=== PATIENT | male | born 1980 | race Caucasian/White ===

== ENCOUNTER 2018-01-03 08:59 | Emergency (ER) | payer OTHER ==
--- OUTSIDE RECORDS SUMMARY | 2018-01-03 09:13 | XMS REPORT ---
:1980 External Reference #:[id number] Author Organization [facility] Address [address] [place] [address] Phone [phone] Care Team Providers Name Role Phone Nan Ybarra M.D. Care Team Information Employment Clerk Unavailable Nan Ybarra M.D. Primary Care Physician Unavailable Payers Type Date Identification Numbers Payment Provider Subscriber Commercial Policy Number: [id number] Insurance Change Jed Jo Group Number: [id number] Group Name: [employer] Plan PayID: [id number] Problems Date Description Provider Status Onset: 06/17/2013 Benign essential hypertension Torito Solis M.D. Active Onset: 06/17/2013 Insomnia Torito Solis M.D. Active Onset: 04/01/2015 Essential hypertension Torito Solis M.D. Active Onset: 04/01/2015 Mixed hyperlipidemia Torito Solis M.D. Active Onset: 04/01/2015 Alcohol dependence Nan Ybarra M.D. Active Onset: 04/01/2015 Abnormal liver function Nan Ybarra M.D. Active Onset: 03/03/2016 Intermittent asthma Nan Ybarra M.D. Active Onset: 03/17/2016 Alcoholic fatty liver Nan Ybarra M.D. Active Onset: 04/01/2015 Anorectal abscess Torito Solis M.D. Resolved Resolved: 03/03/2016 Onset: 04/01/2015 Dysthymic disorder Torito Solis M.D. Resolved Resolved: 03/03/2016 Family History Date Family Member(s) Problem(s) Comments Father Asthma Mother Hypertension Mother Phlebitis Mother Diabetes Mellitus, II Mother DVT Mother Blood Coagulation Disorder Siblings 1 First Sister PCOS First Sister Hypertension Paternal Grandfather Heart Disease Paternal Grandfather Skin Cancer Maternal Grandfather due to Colon Cancer () - 70 yo Maternal Grandmother Heart Disease Social History Type Date Description Comments Marital Status Single lives with male partner of 7 years Lives With Male Partner Occupation Public health. Regional health planning ETOH Use 1/2 pt - 1 pt of vodka per night Smoking Patient is a former smoker quit 2013 Recreational Drug Use Denies Drug Use Daily Caffeine Does not consume caffeine Exercise Type/Frequency Exercises regularly Allergies, Adverse Reactions, Alerts Date Description Reaction Status Severity Comments 03/23/2013 NKDA active 10/20/2015 Pollen active Medications Medication Date Status Form Strength Qnty SIG Indications Ordering Provider Amlodipine 10/19/ Active Tablets 10mg 30tab 1 by mouth I10 Edwardo Nixon Besylate 2015 s every day MD Aneudy Ventolin HFA 10/19/ Active Aerosol 108(90Bas 1unit 2 puffs J45.20 Taya 2015) s every 4 CRISTOFER Jacobsen mcg/Act hours as needed for shortness of breath Atenolol 03/23/ Active Tablets 50mg 60tab take two I10 Edwardo Nixon 2012 s tablets by Aneudy arriola MD every day as directed Vitamin 00/ Active Tablets 1 by mouth Unknown B-Complex 0000 every day Fish Oil / Active Capsules 1000mg 1 by mouth Unknown 0000 every day Hepatapro / Active Cap 300mg 1 to 2 Unknown 0000 caps PO qd Anti-Alcohol / Active 3 po qd Unknown Antioxidants 0000 Vitamin D3 / Active Chewtabs 1000Unit 2 daily Unknown Adult Gummies 0000 Buspirone HCL 09/28/ Hx Tablets 15mg 60tab 1 tab by F06.4 Nan 2016 - s mouth [place], 12/31/ twice a M.D. 2017 day Buspirone HCL 03/03/ Hx Tablets 15mg 60tab 1 tab by F06.4 Nan 2015 - s mouth [place], 09/03/ twice a M.D. 2016 day Proair HFA 10/19/ Hx Aerosol 108(90Bas 1unit 2 puffs J45.20 Taya 2015 - ) s every 4 CRISTOFER Jacobsen 10/19/ mcg/Act hours as 2016 needed Clotrimazole/B 08/07/ Hx Cream 1-0.05% 90gm apply to B35.9 Josiane etamethasone 2016 - affected Gus, Dipropionate 08/07/ area, BLENDING COORDINATOR 2016 posterior knees, once a day Anucort-HC 03/20/ Hx Suppository 25mg [address] K64.2 Franchesca 2014 - ts of rectum Yadira, 03/26/ twice a Afnp-C 2014 day Hydrocodone-Ib 03/20/ Hx Tablets 5-200mg 20tab 1-2 tabs K64.2 Franchesca uprofen 2014 - s po q 6 hrs Yadira, 04/01/ prn for Afnp-C 2014 pain Citalopram 09/27/ Hx Tablets 10mg 30tab 1 by mouth 311 Torito Solis Hydrobromide 2014 - s every day M.D. 2014 Amoxicillin/Cl 12/29/ Hx Tablets 875-125mg 20tab 1 by mouth 461.9 Torito Solis avulanate 2013 - s twice a M.D. Potassium 09/27/ day for 1 2014 0days Amlodipine 12/29/ Hx Tablets 5mg 30tab Take One I10 Torito Solis Besylate 2013 - s Tablet By M.D. 10/19/ Mouth Once 2015 Daily Vistaril 07/20/ Hx Capsules 50mg 60cap 1-2 by 780.52 Torito Solis, 2013 - s mouth M.D. 12/29/ every 2013 night as needed Trazodone HCL 03/23/ Hx Tablets 100mg 60tab 2 by mouth 780.52 Torito Solis 2012 - s every M.D. 07/20/ night 2013 Lisinopril / Hx Tablets 10mg 30tab 1 po qd Unknown 0000 - s 2012 Proair HFA / Hx Aerosol 108(90Bas 1unit 2 puffs 493.90 Torito Solis, 0000 - e) s every 4 M.D. 09/27/ mcg/Act hours as 2014 needed Liver / Hx 1 po qd Unknown Efficiency 0000 - Formula 2017 Vital Signs Date Vital Result Comment 12/31/2017 BP Systolic 130 mmHg BP Diastolic 98 mmHg BP Systolic Recheck 72 mmHg Body Temperature 98.4 F Height 71 inches 5'11" measured 03/03/16 Weight 251.00 lb BMI (Body Mass Index) 35.0 kg/m2 06/29/2017 BP Systolic 120 mmHg BP Diastolic 80 mmHg Heart Rate 68 /min Body Temperature 98.0 F Respiratory Rate 18 /min Height 71 inches 5'11" measured 03/03/16 Weight 250.00 lb BMI (Body Mass Index) 34.9 kg/m2 09/03/2016 BP Systolic 132 mmHg BP Diastolic 88 mmHg Heart Rate 80 /min Body Temperature 97.1 F Height 71 inches 5'11" measured 03/03/16 Weight 242.00 lb BMI (Body Mass Index) 33.7 kg/m2 03/03/2016 BP Systolic 144 mmHg BP Diastolic 96 mmHg Heart Rate 78 /min Body Temperature 99.0 F Height 71 inches 5'11" measured 03/03/16 Weight 231.00 lb BMI (Body Mass Index) 32.2 kg/m2 Right Visual Acuity Distance 20/20 Left Visual Acuity Distance 20/20 12/11/2015 BP Systolic 132 mmHg BP Diastolic 88 mmHg Heart Rate 78 /min Body Temperature 98.4 F Respiratory Rate 16 /min Height 71.25 inches 5'11.25" Weight 234.00 lb BMI (Body Mass Index) 32.4 kg/m2 10/20/2015 BP Systolic 138 mmHg BP Diastolic 102 mmHg BP Systolic Recheck 150 mmHg BP Diastolic Recheck 100 mmHg Heart Rate 86 /min Body Temperature 98.4 F Respiratory Rate 15 /min Height 71.25 inches 5'11.25" Weight 234.50 lb BMI (Body Mass Index) 32.5 kg/m2 08/07/2015 BP Systolic 120 mmHg BP Diastolic 80 mmHg Heart Rate 76 /min Body Temperature 98.1 F Respiratory Rate 18 /min Height 71.25 inches 5'11.25" Weight 236.00 lb BMI (Body Mass Index) 32.7 kg/m2 04/01/2015 BP Systolic 124 mmHg BP Diastolic 80 mmHg Heart Rate 72 /min Body Temperature 97.9 F Respiratory Rate 16 /min Height 71.25 inches 5'11.25" Weight 231.25 lb BMI (Body Mass Index) 32.0 kg/m2 09/27/2014 BP Systolic 150 mmHg BP Diastolic 100 mmHg Heart Rate 100 /min Body Temperature 98.1 F Respiratory Rate 16 /min Height 71.25 inches 5'11.25" Weight 230.00 lb BMI (Body Mass Index) 31.9 kg/m2 12/29/2013 BP Systolic 128 mmHg BP Diastolic 98 mmHg Heart Rate 80 /min Body Temperature 98.0 F Respiratory Rate 16 /min Height 71.25 inches 5'11.25" Weight 213.00 lb BMI (Body Mass Index) 29.5 kg/m2 10/10/2013 BP Systolic 126 mmHg BP Diastolic 90 mmHg Heart Rate 60 /min Body Temperature 97.6 F Respiratory Rate 14 /min Height 71.25 inches 5'11.25" Weight 213.00 lb BMI (Body Mass Index) 29.5 kg/m2 07/20/2013 BP Systolic 110 mmHg BP Diastolic 80 mmHg Heart Rate 80 /min Body Temperature 96.9 F Respiratory Rate 16 /min Height 71.25 inches 5'11.25" Weight 211.00 lb BMI (Body Mass Index) 29.2 kg/m2 04/17/2013 BP Systolic 122 mmHg BP Diastolic 72 mmHg Heart Rate 78 /min Height 71.25 inches 5'11.25" Weight 206.00 lb BMI (Body Mass Index) 28.5 kg/m2 03/23/2013 BP Systolic 138 mmHg BP Diastolic 98 mmHg Heart Rate 84 /min Body Temperature 98.1 F Respiratory Rate 17 /min Height 71.25 inches 5'11.25" Weight 209.00 lb BMI (Body Mass Index) 28.9 kg/m2 Results Test Date Test Result H/L Range Note Comprehensive Metabolic Prof 09/03/2016 Sodium 139 mEq/L 134-149 Potassium 4.0 mEq/L 3.6-5.5 Chloride 102 mEq/L 94-112 Carbon Dioxide 23 mEq/L 21-32 Glucose 113 mg/dL High 70-105 1 BUN 12 mg/dL 6-26 Creatinine 0.8 mg/dL 0.6-1.4 BUN/Creat Ratio 15.0 CALC 8.0-36.0 Calcium 9.8 mg/dL 8.6-10.2 Total Protein 7.7 g/dL 6.4-8.3 Albumin 4.7 g/dL 3.8-5.5 Globulin 3.0 g/dL 2.0-4.8 A/G Ratio 1.6 CALC 0.6-2.3 Alk. Phosphatase 95 U/L 22-95 Alt (SGPT) 158 U/L High 7-35 Ast (Sgot) 122 U/L High 5-34 Total Bilirubin 0.7 mg/dL 0.2-1.3 GFR Non- >60 ml/min/1.73m^ >=60 GFR >60 ml/min/1.73m^ >=60 Lipid Profile 09/03/2016 Cholesterol 213 mg/dL High 120-200 Triglycerides 353 mg/dL High 30-200 HDL Cholesterol 45 mg/dL 30-70 LDL (Calculated) 97 CALC 0-129 VLDL Cholesterol 71 mg/dL High 0-50 HDL Risk Factor 4.7 CALC High 0.0-4.4 Laboratory test finding 09/03/2016 LDL, Direct 104 mg/dL 0-130 Hepatitis Panel, Acute 03/03/2016 Hep A Ab, IgM Negative Negative 2 HBsAg Screen Negative Negative 2 Hep B Core Ab, IgM Negative Negative 2 Hep C Virus Ab 0.4 s/coratio 0.0-0.9 2, 3 Prothrombin Time (PT) 03/03/2016 Inr 1.0 2, 4 Prothrombin Time 10.4 seconds 9.6-11.5 2 PTT, Activated 03/03/2016 aPTT 28.5 seconds 25.0-31.3 2 Laboratory test finding 03/03/2016 LDL, Direct 127 mg/dL 0-130 Laboratory test finding 03/03/2016 PDF [id number] SEE IMAGE 2 Comprehensive Metabolic Prof 03/03/2016 Sodium 141 mEq/L 134-149 Potassium 4.2 mEq/L 3.6-5.5 Chloride 102 mEq/L 94-112 Carbon Dioxide 24 mEq/L 21-32 Glucose 102 mg/dL 70-105 BUN 16 mg/dL 6-26 Creatinine 0.9 mg/dL 0.6-1.4 BUN/Creat Ratio 17.8 CALC 8.0-36.0 Calcium 10.2 mg/dL 8.6-10.2 Total Protein 8.0 g/dL 6.4-8.3 Albumin 5.1 g/dL 3.8-5.5 Globulin 2.9 g/dL 2.0-4.8 A/G Ratio 1.8 CALC 0.6-2.3 Alk. Phosphatase 80 U/L 22-95 Alt (SGPT) 150 U/L High 7-35 5 Ast (Sgot) 108 U/L High 5-34 6 Total Bilirubin 0.7 mg/dL 0.2-1.3 GFR Non- >60 ml/min/1.73m^ >=60 GFR >60 ml/min/1.73m^ >=60 Lipid Profile 03/03/2016 Cholesterol 203 mg/dL High 120-200 Triglycerides 272 mg/dL High 30-200 HDL Cholesterol 48 mg/dL 30-70 LDL (Calculated) 101 CALC 0-129 VLDL Cholesterol 54 mg/dL High 0-50 HDL Risk Factor 4.2 CALC 0.0-4.4 Complete Blood Count 03/03/2016 WBC 5.1 x10^3/UL 3.6-9.6 RBC 4.89 x10^6/UL 3.90-5.70 HGB 16.1 g/dL 12.1-17.2 HCT 47 % 36-50 MCV 96.0 fL 82.2-97.4 MCH 33.0 pg 27.6-33.3 MCHC 34.3 g/dL 33.0-35.5 RDW 14.1 % High 11.6-13.7 PLT 259 x10^3/UL 150-400 MPV 7.4 fL 7.4-10.4 Gran # 2.3 x10^3/UL 1.5-7.2 Lymph# 2.6 x10^3/UL 0.7-4.9 [place]# 0.2 x10^3/UL 0.1-0.9 Gran % 42.1 % Low 42.2-75.2 Lymph % 52.8 % High 20.5-51.1 [place]% 5.1 % 1.7-9.3 Comprehensive Metabolic Prof 10/20/2015 Sodium 134 mEq/L 134-149 Potassium 4.0 mEq/L 3.6-5.5 Chloride 94 mEq/L 94-112 Carbon Dioxide 24 mEq/L 21-32 Glucose 111 mg/dL High 70-105 BUN 16 mg/dL 6-26 Creatinine 0.9 mg/dL 0.6-1.4 BUN/Creat Ratio 17.8 CALC 8.0-36.0 Calcium 10.2 mg/dL 8.6-10.2 Total Protein 7.8 g/dL 6.4-8.3 Albumin 4.9 g/dL 3.8-5.5 Globulin 2.9 g/dL 2.0-4.8 A/G Ratio 1.7 CALC 0.6-2.3 Alk. Phosphatase 75 U/L 22-95 Alt (SGPT) 117 U/L High 7-35 Ast (Sgot) 57 U/L High 5-34 Total Bilirubin 0.7 mg/dL 0.2-1.3 GFR Non- >60 ml/min/1.73m^ >=60 GFR >60 ml/min/1.73m^ >=60 Lipid Profile 10/20/2015 Cholesterol 197 mg/dL 120-200 Triglycerides 254 mg/dL High 30-200 HDL Cholesterol 43 mg/dL 30-70 LDL (Calculated) 103 CALC 0-129 VLDL Cholesterol 51 mg/dL High 0-50 HDL Risk Factor 4.6 CALC High 0.0-4.4 Laboratory test finding 10/20/2015 LDL, Direct 98 mg/dL 0-130 Comprehensive Metabolic Prof 04/01/2015 Sodium 136 mEq/L 134-149 Potassium 4.2 mEq/L 3.6-5.5 Chloride 97 mEq/L 94-112 Carbon Dioxide 26 mEq/L 21-32 Glucose 102 mg/dL 70-105 BUN 18 mg/dL 6-26 Creatinine 1.0 mg/dL 0.6-1.4 BUN/Creat Ratio 18.0 CALC 8.0-36.0 Calcium 9.6 mg/dL 8.6-10.2 Total Protein 7.7 g/dL 6.4-8.3 Albumin 4.7 g/dL 3.8-5.5 Globulin 3.0 g/dL 2.0-4.8 A/G Ratio 1.6 CALC 0.6-2.3 Alk. Phosphatase 71 U/L 22-95 Alt (SGPT) 94 U/L High 7-35 7 Ast (Sgot) 79 U/L High 5-34 8 Total Bilirubin 0.7 mg/dL 0.2-1.3 GFR Non- >60 ml/min/1.73m^ >=60 GFR >60 ml/min/1.73m^ >=60 Lipid Profile 04/01/2015 Cholesterol 199 mg/dL 120-200 Triglycerides 462 mg/dL High 30-200 HDL Cholesterol 44 mg/dL 30-70 LDL (Calculated) 63 CALC 0-129 9 VLDL Cholesterol 92 mg/dL High 0-50 HDL Risk Factor 4.5 CALC High 0.0-4.4 Laboratory test finding 04/01/2015 LDL, Direct 92 mg/dL 0-130 Complete Blood Count 04/01/2015 WBC 5.9 x10^3/UL 3.6-9.6 RBC 4.62 x10^6/UL 3.90-5.70 HGB 15.8 g/dL 12.1-17.2 HCT 45 % 36-50 MCV 97.0 fL 82.2-97.4 MCH 34.3 pg High 27.6-33.3 MCHC 35.2 g/dL 33.0-35.5 RDW 13.5 % 11.6-13.7 PLT 242 x10^3/UL 150-400 MPV 6.7 fL Low 7.4-10.4 Gran # 2.9 x10^3/UL 1.5-7.2 Lymph# 2.8 x10^3/UL 0.7-4.9 [place]# 0.2 x10^3/UL 0.1-0.9 Gran % 46.8 % 42.2-75.2 Lymph % 48.3 % 20.5-51.1 [place]% 4.9 % 1.7-9.3 Laboratory test 04/01/2015 TSH 1.68 mIU/L 0.50-6.00 finding Laboratory test 03/21/2015 Wound SEE RESULT BELOW 10, 11 finding Culture/Sensi Anaerobic Culture SEE RESULT BELOW 10, 12 Comprehensive Metabolic Prof 06/19/2013 Albumin 5.1 g/dL 3.8-5.5 Alk. Phos. 69 U/L 22-95 Alt (SGPT) 106 U/L High 10-40 13 Ast (Sgot) 86 U/L High 5-34 14 BUN 19 mg/dL 6-26 Calcium 10.9 mg/dL High 8.6-10.2 15 Chloride 101 mEq/L 94-112 Creatinine 1.2 mg/dL 0.6-1.4 Carbon Dioxide 25 mEq/L 21-32 Glucose 110 mg/dL High 70-105 16 Sodium 138 mEq/L 134-149 Total Bilirubin 0.8 mg/dL 0.2-1.3 Total Protein 7.9 g/dL 6.3-8.1 Potassium 4.6 mEq/L 3.6-5.5 Globulin 2.8 g/dL 2.0-4.8 A/G Ratio 1.9 Calc 0.6-2.3 BUN/Creat Ratio 16.7 Calc 8.0-36.0 Lipid Profile 06/19/2013 Cholesterol 214 mg/dL High 120-200 HDL 42 mg/dL 30-70 Triglycerides 538 mg/dL High 30-200 HDL Risk Factor 5.1 CALC High 0.0-4.4 LDL (Calculated) 64 CALC 0-129 VLDL (Calculated) 108 mg/dL High 0-50 Laboratory test finding 06/19/2013 LDL (Direct) 88 mg/dL 0-130 Comprehensive Metabolic Prof 04/17/2013 Albumin 5.1 g/dL 3.8-5.5 Alk. Phos. 78 U/L 22-95 Alt (SGPT) 103 U/L High 10-40 Ast (Sgot) 63 U/L High 5-34 BUN 19 mg/dL 6-26 Calcium 10.2 mg/dL 8.6-10.2 Chloride 102 mEq/L 94-112 Creatinine 1.0 mg/dL 0.6-1.4 Carbon Dioxide 23 mEq/L 21-32 Glucose 90 mg/dL 70-105 Sodium 139 mEq/L 134-149 Total Bilirubin 0.5 mg/dL 0.2-1.3 Total Protein 8.1 g/dL 6.3-8.1 Potassium 4.1 mEq/L 3.6-5.5 Globulin 3.0 g/dL 2.0-4.8 A/G Ratio 1.7 Calc 0.6-2.3 BUN/Creat Ratio 19.0 Calc 8.0-36.0 Lipid Profile 04/17/2013 Cholesterol 229 mg/dL High 120-200 HDL 36 mg/dL 30-70 Triglycerides 891 mg/dL High 30-200 HDL Risk Factor 6.4 CALC High 0.0-4.4 LDL (Calculated) 15 CALC 0-129 VLDL (Calculated) 178 mg/dL High 0-50 Laboratory test finding 04/17/2013 LDL (Direct) 82 mg/dL 0-130 Laboratory test finding 04/17/2013 Gamma gt 192 U/L High 5-71 17 Comprehensive Metabolic Prof 03/23/2013 Albumin 4.7 g/dL 3.8-5.5 Alk. Phos. 87 U/L 22-95 Alt (SGPT) 98 U/L High 10-40 Ast (Sgot) 52 U/L High 5-34 BUN 15 mg/dL 6-26 Calcium 10.2 mg/dL 8.6-10.2 Chloride 105 mEq/L 94-112 Creatinine 1.0 mg/dL 0.6-1.4 Carbon Dioxide 25 mEq/L 21-32 Glucose 101 mg/dL 70-105 Sodium 136 mEq/L 134-149 Total Bilirubin 0.4 mg/dL 0.2-1.3 Total Protein 7.8 g/dL 6.3-8.1 Potassium 3.8 mEq/L 3.6-5.5 Globulin 3.0 g/dL 2.0-4.8 A/G Ratio 1.5 Calc 0.6-2.3 BUN/Creat Ratio 14.9 Calc 8.0-36.0 Lipid Profile 03/23/2013 Cholesterol 200 mg/dL 120-200 HDL 42 mg/dL 30-70 Triglycerides 781 mg/dL High 30-200 HDL Risk Factor 4.8 CALC High 0.0-4.4 LDL (Calculated) 2 CALC 0-129 VLDL (Calculated) 156 mg/dL High 0-50 Laboratory test finding 03/23/2013 TSH 1.14 mIU/L 0.50-6.00 LDL (Direct) 72 mg/dL 0-130 Laboratory test finding 03/23/2013 C-Reactive Protein 1.3 mg/L 0.0-5.0 18 Gamma gt 170 U/L High 5-71 18 CBC Electronic (Fma) 03/23/2013 WBC 5.0 3.6-9.6 RBC 4.76 3.90-5.70 Hemoglobin (Fma/CMC/CTX) 15.0 g/dL 12.1 - 17.2 Hematocrit (Fma/CMC/CTX) 45.5 % 36.1 - 50.3 Platelets 289 10^3/ul 150-400 Lymph% 50.7 20.5-51.1 Mixed% 4.9 Neutrophils % 44.4 Mean Corpuscular Vol 96 82.2-97.4 Mean Corpuscular Hemoglobin 31.5 27.6-33.3 Mean Corpuscular Hemo Concen 32.9 32.0-36.0 RDW 12.3 11.6-13.7 Mean Platelet Volume 7.3 6.5-11.0 1 RESULTS VERIFIED BY REPEAT ANALYSIS 2 1 light blue 3 Negative: < 0.8 Indeterminate: 0.8 - 0.9 Positive: > 0.9 The CDC recommends that a positive HCV antibody result be followed up with a HCV Nucleic Acid Amplification test (216872). 4 INTERNATIONAL NORMALIZED RATIO(INR) INDICATIONS INR RANGE PATIENTS NOT ON ANTICOAGULANT THERAPY * DEEP VENOUS THROMBOSIS 2.0-3.0 PULMONARY EMBOLISM 2.0-3.0 ATRIAL FIBRILLATION 2.0-3.0 PROPHYLAXIS: 2.0-3.0 HIGH-RISK SURGERY TISSUE HEART VALVES ATRIAL FIBRILLATION ACUTE MYOCARDIAL INFARCTION VALVULAR HEART DISEASE MECHANICAL PROSTHETIC VALVE 2.5-3.5 * USE OF INR VALUES SHOULD BE LIMITED TO PATIENTS WHO ARE ON STABLE ORAL ANTICOAGULANT THERAPY. AN INR ABOVE 5.0-5.5 APPEARS TO BE ASSOCIATED WITH AN UNACCEPTABLY HIGH RISK OF BLEEDING. 5 RESULTS VERIFIED BY REPEAT ANALYSIS 6 RESULTS VERIFIED BY REPEAT ANALYSIS 7 RESULTS VERIFIED BY REPEAT ANALYSIS 8 RESULTS VERIFIED BY REPEAT ANALYSIS 9 INVALID 10 ANAL ABSCESS 11 SEE RESULT BELOW Name: JED JO : [address]: Robson Patterson MD Acct: [id number] Unit: [id number] AGE: 34 Location: [place] Re03/21/15 SEX: M Status: REG SDC SPEC: [id number] ARLYN: 03/21/15-[address] [facility] [address]: Robson Patterson MD REQ: [id number] RECD: 03/21/15 STATUS: RES OT DR: Torito Solis MD _ SOURCE: WOUND SPDESC:ABSCESS ORDERED: Anaerobic Cult, Culture Stain COMMENTS: ANAL ABSCESS QUERIES: Specimen Description ANAL ABSCESS Procedure Result Verified Site Anaerobic Culture Preliminary 03/24/15- 1005 ML Organism 1 ANAEROBIC GRAM NEGATIVE BACILL Quantity 3+ Beta Lactamase Positive Wound/Misc Gram Stain Final 03/22/15- 0811 ML 4+ Neutrophils 1+ Epithelial Cells 4+ Gram Negative Bacilli 1+ Gram Positive Cocci 1+ Gram Positive Bacilli Wound/Misc Culture Preliminary 03/24/15- 1005 ML EXPECTED MIXED AEROBIC GINA CONSISTING OF MIXED ENTERICS AND ALPHA STREPTOCOCCI. NO PREDOMINATING ORGANISMS. * ML - MAIN LAB ([facility]) . END OF REPORT * ML=Testing performed at Main Lab DEPARTMENT OF PATHOLOGY, [address] [place] [address] Carlitos Esteban M.D. Director [facility] # [id number] 12 SEE RESULT BELOW Name: JED JO : [address]: Robson Patterson MD Acct: [id number] Unit: [id number] AGE: 34 Location: [place] Re03/21/15 SEX: M Status: REG SDC SPEC: [id number] ARLYN: 03/21/[address]: Robson Patterson MD REQ: [id number] RECD: 03/21/15 STATUS: ROSALBA SR DR: Torito Solis MD _ SOURCE: WOUND SPDESC:ABSCESS ORDERED: Anaerobic Cult, Culture Stain COMMENTS: ANAL ABSCESS QUERIES: Specimen Description ANAL ABSCESS Procedure Result Verified Site Anaerobic Culture Final 03/25/15- 1036 ML Organism 1 BACTEROIDES FRAGILIS Quantity 3+ Beta Lactamase Positive Organism 2 BACTEROIDES SPECIES Quantity 3+ Beta Lactamase Positive BACTEROIDES SPECIES=B. CACCAE Anaerobic sensitivities are not routinely performed. Positive isolates will be saved for one week. Please call the Microbiology Laboratory if susceptibility testing is needed. Wound/Misc Gram Stain Final 03/22/15- 0811 ML 4+ Neutrophils 1+ Epithelial Cells 4+ Gram Negative Bacilli 1+ Gram Positive Cocci 1+ Gram Positive Bacilli Wound/Misc Culture Final 03/25/15- 1036 ML CONTINUED ON NEXT PAGE * ML=Testing performed at [facility] Lab DEPARTMENT OF PATHOLOGY, [address] [place] [address] Carlitos Esteban M.D. Director [facility] # [id number] Patient: JED JO [id number] (Continued) Specimen: [id number] Collected: 03/21/15 Received: 03/21/15 (Continued) Procedure Result Verified Site Wound/Misc Culture Final (continued) 03/25/15- 1036 EXPECTED MIXED AEROBIC GINA CONSISTING OF MIXED ENTERICS AND ALPHA STREPTOCOCCI. NO PREDOMINATING ORGANISMS. SEE ANAEROBIC CULTURE * ML - MAIN LAB ([facility]) . END OF REPORT * ML=Testing performed at Main Lab DEPARTMENT OF PATHOLOGY, [address] [place] [address] Carlitos Esteban M.D. Director [facility] # [id number] 13 result jeff'd 14 result jeff'd 15 result jeff'd 16 result jeff'd 17 1 SST 18 FASTING; 1 sst Procedures Date CPT Code Description Status 03/03/2016 47751 Vision Test- screening test of visual acuity, Completed quantitative, bila 10/10/2013 11338 Electrocardiogram Complete Completed Encounters Type Date Location Provider CPT E/M Dx Office Visit 06/29/2017 1:30p [facility] Office TOM Shelton 78023 M79.671 M25.571 Office Visit 09/03/2016 9:30a [facility] Office TOM Shelton 29553 I10 E78.2 F10.20 R94.5 G47.00 E78.1 Office Visit 03/03/2016 9:00a [facility] Office Nan Ybarra M.D. 79910 Z00.00 I10 E78.2 J45.20 R94.5 F10.20 F06.4 F51.04 E78.1 Office Visit 12/11/2015 1:00p [facility] Franchesca MayAngle-C 26692 I10 Office Visit 10/20/2015 9:30a [facility] Taya Jacobsen, EXERCISE INSTRUCTOR 79879 I10 E78.2 J45.20 E78.1 Office Visit 08/07/2015 8:30a Main Office Josiane Weber, [facility] 93036 B35.9 Office Visit 04/01/2015 8:10a [facility] Torito Solis M.D. 10714 I10 E78.2 F34.1 K61.1 E78.1 Office Visit 03/20/2015 11:15a Main Office Franchesca MayMontrell 92788 K64.2 Office Visit 09/27/2014 2:20p [facility] Office Torito Solis M.D. 27588 401.1 311 786.30 Office Visit 12/29/2013 10:45a Main Office Torito Solis M.D. 57332 401.1 461.9 477.9 305.1 Office Visit 10/10/2013 11:30a Main Office Torito Solis M.D. 90127 786.59 Office Visit 07/20/2013 8:00a [facility] Torito Solis M.D. 30525 272.4 401.1 780.52 303.91 Office Visit 04/17/2013 8:20a [facility] Torito Solis M.D. 80590 401.1 780.52 303.91 272.1 Office Visit 03/23/2013 8:00a Main Office Torito Solis M.D. 19435 401.1 780.52 303.91 333.1 493.90 272.4 272.1 Plan of Care 12/31/2017 - Edwardo Amado MDI10 Essential (primary) hypertensionAllComments:~B_~U_Medication Management~b_~u_ Patient Understands medications he's taking? Yes No Are there Barriers to Adherence? Yes No Has the patient been asked about herbal supplements and therapies, and OTC meds? Yes No
[2018-01-03 09:17] VITALS: BP 128/91
--- NOTE | 2018-01-03 09:32 | UC ---
Shoulder Pain HPI - HPI Summary HPI Summary: 37 yo gentleman c/o L shoulder pain since yesterday. Mechanical T/F in parking lot. Fell onto L shoulder, felt something "pop," then he "popped it back in." [place] better, and able to move. However, this morning, c/o increased pain, and hesitation with movement. No p/d/w. No neck or back pain. No LOC. - History of Current Complaint Chief Complaint: UCUpperExtremity Stated Complaint: SHOULDER INJURY Time Seen by Provider: 01/03/18 09:23 Hx Obtained From: Patient Pain Intensity: 7 - Allergies/Home Medications Allergies/Adverse Reactions: Allergies Allergy/AdvReac Type Severity Reaction Status Date / Time No Known Allergies Allergy Verified 01/03/18 09:17 PMH/Surg Hx/FS Hx/Imm Hx Previously Healthy: Yes - Surgical History Surgical History: Yes Surgery Procedure, Year, and Place: 1996, RIGHT KNEE, CONN. NASAL FX 1997, MASS removal - Family History Known Family History: Positive: None - Social History Occupation: Employed Full-time Alcohol Use: Weekly Alcohol Amount: 3-4 DRINKS 5-6X PER WEEK Substance Use Type: None Smoking Status (MU): Former Smoker Amount Used/How Often: PACK A DAY Have You Smoked in the Last Year: No When Did the Patient Quit Smoking/Using Tobacco: 2013 Review of Systems Constitutional: Negative Skin: Negative Eyes: Negative ENT: Negative Respiratory: Negative Cardiovascular: Negative Gastrointestinal: Negative Genitourinary: Negative Motor: Other - see hpi Neurovascular: Negative Musculoskeletal: Other: - see hpi Neurological: Negative Psychological: Negative Is Patient Immunocompromised?: No All Other Systems Reviewed And Are Negative: Yes Physical Exam - Summary Physical Exam Summary: see below Triage Information Reviewed: Yes Appearance: Well-Nourished Vital Signs: Initial Vital Signs Temp 99.2 F 01/03/18 09:13 Pulse 81 01/03/18 09:13 Resp 18 01/03/18 09:13 BP 128/91 01/03/18 09:13 Pulse Ox 96 01/03/18 09:13 Vital Signs Reviewed: Yes Eye Exam: Normal - grossly normal ENT Exam: Normal - grossly normal Neck: Positive: Supple, Nontender Respiratory Exam: Normal - no tachypnea, no dyspnea Cardiovascular Exam: Normal - hr regular, nondiaphoretic Abdominal Exam: Normal Abdomen Description: Positive: Nontender Musculoskeletal Exam: Other - Tender ac area, post shoulder tender. Tender axillary area. + ax n sens present Straightens elbow ok R/U 2+ equal. Distal hand sens present LT Neurological Exam: Normal - see above musc skel. Nonfocal. Psychological Exam: Normal - conversing easily and appropriately Skin Exam: Normal - no skin discoloration appreciated Shoulder Course/Dx - Course Course Of Treatment: See d/c instructions. Reviewed xray reports with Mr. Jo (AC joint, shoulder). Reviewed coa / tx plan. Questions as posed answered to the best of my ability. - Differential Dx/Diagnosis Provider Diagnoses: Acute L shoulder sprain Discharge - Sign-Out/Discharge Documenting (check all that apply): Patient Departure - Discharge Plan Condition: Stable Disposition: HOME Prescriptions: Ibuprofen TAB* [Motrin TAB* 600 MG] 600 mg PO Q8H PRN #30 tab PRN Reason: Pain Patient Education Materials: Shoulder Sprain (ED) Forms: *Work Release Referrals: Nan Ybarra MD [Primary Care Provider] - Aaron Pugh MD [Medical Doctor] - Additional Instructions: Follow up with orthopedic surgeon this week if possible. Seek medical attention for worse or new problems. Follow up with your primary care physician per routine. Sling during the day for comfort. Recommend at least this week, then per orthopedist recommendations. - Billing Disposition and Condition Condition: STABLE Disposition: Home
--- NOTE | 2018-01-03 10:05 | RAD ---
Indication: Fall with reported transient dislocation to the LEFT shoulder. Self reduced. [place] pop. Comparison: No relevant prior exams available on [place] [facility]. Technique: Internal rotation AP, external rotation Grashey, scapular Y, axillary views LEFT shoulder Report: Normal acromioclavicular and glenohumeral joint alignment. Negative for fracture. Unremarkable soft tissue contours. IMPRESSION: #. Negative radiographic exam of the LEFT shoulder.
[2018-01-03] MEDS ORDERED: Ibuprofen TAB* 400 MG PO ONE (10:08)
--- NOTE | 2018-01-03 10:10 | RAD ---
INDICATION: Shoulder injury COMPARISON: None TECHNIQUE: AP views of the AC joints with and without weights were obtained FINDINGS: There is no evidence of AC joint separation or evidence of clavicular fracture. Lung apices are clear IMPRESSION: NEGATIVE EXAMINATION.
== END 2018-01-03 10:30 | disposition home or self-care (01) ==
LOC: UCEAST 08:59
DX: S43.402A Unspecified sprain of left shoulder joint, initial encounter (principal); Z87.891 Personal history of nicotine dependence; W19.XXXA Unspecified fall, initial encounter; Y92.481 Parking lot as the place of occurrence of the external cause
CPT/HCPCS: 73050; 99213; A9270-GY; G0463

== ENCOUNTER 2019-06-24 07:40 | Emergency (ER) | payer BC ==
[2019-06-24] MEDS ORDERED: Ketorolac *IM* INJ* 60 MG/2 ML VIAL IM ONE (08:17)
[2019-06-24] MEDS ORDERED: Diazepam TAB(*) 5 MG PO ONE (08:17)
--- NOTE | 2019-06-24 08:19 | ED ---
GI/ HPI - HPI Summary HPI Summary: Patient is a 38 y/o M presenting to the ED for a chief complaint of a right- sided rectal abscess that has worsened over the last week. Patient is present with a friend. Patient complains of rectal pain near the site of the abscess that he rates a 9/10 in severity. Patient last took 600 mg of ibuprofen for his pain at 05:30 on 06/24/19. Patient initially believed he had a hemorrhoid. He notes having a rectal abscess in the past that was drained. Patient denies fever. He denies any aggravating or alleviating factors. PMHx is significant for hypertension, but he denies a history of hypercholesterolemia or diabetes mellitus. PSHx is significant for right knee surgery in 1996. Any pertinent FMHx is denied. Patient denies tobacco or drug use, but admits alcohol use. - History of Current Complaint Chief Complaint: EDRashSkinAbscess Time Seen by Provider: 06/24/19 08:01 Stated Complaint: RECTAL ABSCESS PER PT Hx Obtained From: Patient Onset/Duration: Started Days Ago, Atraumatic, Still Present Timing: Constant Severity: Moderate Current Severity: Moderate Pain Intensity: 9 Location of Pain: Rectal - Right-sided Associated Signs and Symptoms: Positive: Rectal Pain - Right-sided, Other: - Positive right-sided rectal abscess. Negative: Fever Aggravating Factor(s): Nothing Alleviating Factor(s): Nothing - Allergy/Home Medications Allergies/Adverse Reactions: Allergies Allergy/AdvReac Type Severity Reaction Status Date / Time No Known Allergies Allergy Verified 06/24/19 07:46 Home Medications: Home Medications Melatonin 15 mg PO BEDTIME 06/24/19 [History Confirmed 06/24/19] Metoprolol Succinate XL TAB* [Toprol XL TAB*] 100 mg PO DAILY 06/24/19 [History Confirmed 06/24/19] Naltrexone TAB* 50 mg PO DAILY 06/24/19 [History Confirmed 06/24/19] PMH/Surg Hx/FS Hx/Imm Hx Previously Healthy: Yes Endocrine/Hematology History: Denies: Hx Diabetes Cardiovascular History: Reports: Hx Hypertension - ON MEDS Denies: Hx Hypercholesterolemia, Hx Pacemaker/ICD, Other Cardiovascular Problems/Disorders Respiratory History: Reports: Hx Asthma, Hx Sleep Apnea - NO STUDY DONE GI History: Reports: Hx Gastroesophageal Reflux Disease, Hx Irritable Bowel, Other GI Disorders - HI TRIGLICERIDES History: Denies: Other Problems/Disorders Musculoskeletal History: Denies: Other Musculoskeletal History Sensory History: Denies: Hx Contacts or Glasses, Hx Legally Blind, Hx Deafness, Hx Hearing Aid Opthamlomology History: Denies: Hx Contacts or Glasses, Hx Legally Blind EENT History: Denies: Hx Deafness Neurological History: Denies: Other Neuro Impairments/Disorders Psychiatric History: Reports: Hx Anxiety - NO MEDS, Hx Depression - LONG AGO Denies: Hx Panic Disorder - Surgical History Surgical History: Yes Surgery Procedure, Year, and Place: 1996, RIGHT KNEE, CONN. NASAL FX 1997, MASS removal Hx Anesthesia Reactions: No Infectious Disease History: No Infectious Disease History: Denies: Traveled Outside the [place] in Last 30 Days - Family History Known Family History: Negative: Cardiac Disease, Hypertension, Diabetes - Social History Occupation: Employed Full-time Lives: Dormitory/Roommates Alcohol Use: Weekly Alcohol Amount: 3-4 DRINKS 5-6X PER WEEK Hx Substance Use: No Substance Use Type: Reports: None Hx Tobacco Use: Yes Smoking Status (MU): Former Smoker Amount Used/How Often: PACK A DAY Have You Smoked in the Last Year: No Review of Systems Negative: Fever Positive: pain - Right-sided rectal pain Positive: Other - Positive right-sided rectal abscess All Other Systems Reviewed And Are Negative: Yes Physical Exam - Summary Physical Exam Summary: VITAL SIGNS: Reviewed. GENERAL: Patient is a well-developed and nourished MALE who is lying comfortable in the stretcher. Patient is not in any acute respiratory distress. HEAD AND FACE: No signs of trauma. No ecchymosis, hematomas or skull depressions. No sinus tenderness.. EYES: PERRLA, EOMI x 2, No injected conjunctiva, no nystagmus. EARS: Hearing grossly intact. Ear canals and tympanic membranes are within normal limits. MOUTH: Oropharynx within normal limits. NECK: Supple, trachea is midline, no adenopathy, no JVD, no carotid bruit, no c- spine tenderness, neck with full ROM. CHEST: Symmetric, no tenderness at palpation. LUNGS: Clear to auscultation bilaterally. No wheezing or crackles. CVS: Regular rate and rhythm, S1 and S2 present, no murmurs or gallops appreciated. ABDOMEN: Soft, non-tender. No signs of distention. No rebound, no guarding, and no masses palpated. Bowel sounds are normal. EXTREMITIES: FROM in all major joints, no edema, no cyanosis or clubbing. NEURO: Alert and oriented x 3. No acute neurological deficits. Speech is normal and follows commands. SKIN: Dry and warm. : right glutteal abscess and swelling, tenderness to palpation. Triage Information Reviewed: Yes Vital Signs On Initial Exam: Initial Vitals Temp Pulse Resp BP Pulse Ox 97.7 F 67 16 135/98 94 06/24/19 07:44 06/24/19 07:44 06/24/19 07:44 06/24/19 07:44 06/24/19 07:44 Vital Signs Reviewed: Yes Procedures - Procedure Summary Procedure Summary: Incision and drainage procedure summary: Copious of discharge was drained. 1.0% lidocaine with epinephrine, 11 blade scalpel, packing was placed and the area was dressed. On rectal exam, no fissures. - Sedation Patient Received Moderate/Deep Sedation with Procedure: No - Incision and Drainage Right Gluteal Fold Site: Right glutteal Anesthesia: Lidocaine - 1.0% lidocaine with epinephrine Instrument(s): Scalpel - 11 blade Packing: Drain - Copious amounts of discharge was drained Diagnostics - Vital Signs Vital Signs Temp Pulse Resp BP Pulse Ox 06/24/19 07:44 97.7 F 67 16 135/98 94 - Laboratory Lab Statement: Any lab studies that have been ordered have been reviewed, and results considered in the medical decision making process. GIGU Course/Dx - Course Assessment/Plan: Patient is a 38-year-old male with chief complaint of an abscess of the right gluteus near the rectum. Rectal exam show no rectal fissures. I&D was performed without complications. Patient was given Toradol and Valium for pain and anxiety. He was given Bactrim for the abscess and for cellulitis. Patient was discharged home to follow up with his primary care physician in the next 2-3 days. He was given instructions to return to the emergency department if the pain continues or if he has any other symptoms. The patient understands and agrees. - Diagnoses Provider Diagnoses: Abscess, Cellulitis Discharge ED - Sign-Out/Discharge Documenting (check all that apply): Patient Departure - Discharge - Discharge Plan Condition: Stable Disposition: HOME Prescriptions: Sulfamethox/Trimethoprim DS* [Bactrim DS 800/160 TAB*] 1 tab PO BID #20 tab Patient Education Materials: Abscess (ED) Referrals: Edwardo Amado MD [Primary Care Provider] - Additional Instructions: FOLLOW UP WITH YOUR PRIMARY CARE PROVIDER WITHIN 3 DAYS. RETURN TO THE EMERGENCY DEPARTMENT FOR ANY WORSENING OR NEW SYMPTOMS. - Billing Disposition and Condition Condition: STABLE Disposition: Home - Attestation Statements Document Initiated by Scribe: Yes Documenting Scribe: Emily Garnica Provider For Whom Urmilaiblong is Documenting (Include Credential): Renny Baxter MD Scribe Attestation: Emily Kwko, scribed for Renny Baxter MD on 06/24/19 at 1819. Scribe Documentation Reviewed: Yes Provider Attestation: The documentation as recorded by the Emily ling accurately reflects the service I personally performed and the decisions made by Renny toure MD Status of Scribe Document: Viewed
[2019-06-24] MEDS ORDERED: Lidocaine 1% MPF ** 5 ML VIAL ONE (08:28)
[2019-06-24] MEDS ORDERED: Sulfamethox/Trimethoprim DS 800/160* TAB PO ONE (08:59)
[2019-06-24 09:10] VITALS: BP 136/91
== END 2019-06-24 09:09 | disposition home or self-care (01) ==
LOC: ED 07:40
DX: L02.31 Cutaneous abscess of buttock (principal); L03.317 Cellulitis of buttock; I10 Essential (primary) hypertension; J45.909 Unspecified asthma, uncomplicated; K21.9 Gastro-esophageal reflux disease without esophagitis; F41.9 Anxiety disorder, unspecified; Z87.891 Personal history of nicotine dependence; Z79.899 Other long term (current) drug therapy
CPT/HCPCS: 10060; 87070; 87076; 87077; 87186; 87205; 87640; 87641; 96372; 99282; A9270-GY; J1885